=== PATIENT | female | born 1955 | race Caucasian/White ===

== ENCOUNTER 2024-07-09 11:03 | Outpatient (OUT) | payer MEDICARE, OTHER, SELFPAY ==
--- NOTE | 2024-07-09 | XR_ITS ---
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 No acute fracture, dislocation or mechanical failure. Contour deformity of the distal tibia and fibula consistent with remote traumatic or degenerative images, stable . Mild to moderate enthesopathic spurring of the calcaneus. Moderate degenerative changes of the midfoot SOFT TISSUES:Negative. No visible soft tissue swelling. EFFUSION:None visible. OTHER: Negative. XR/XR ankle LT min 3V IMPRESSION: Stable ankle arthroplasty Electronically authenticated by: AFTAB RAGLAND Date: 07/10/2024 07:31
== END 2024-07-09 11:04 | disposition home or self-care (01) ==
PROVIDERS: Visit Provider Podiatrist Foot & Ankle Surgery
DX: M25.572 Pain in left ankle and joints of left foot (principal); Z96.662 Presence of left artificial ankle joint
CPT/HCPCS: 73610